=== PATIENT | female | born 1990 | race African-American/Black ===

== ENCOUNTER 2025-05-17 12:22 | Emergency (ER) | payer OTHER ==
[~2025-05-17] VITALS: Ht 149.9 cm; Wt 71.0 kg
[2025-05-17 12:39] VITALS: BP 120/74; TEMP 36.7; O2SAT 99
[2025-05-17 12:40] VITALS: PULSE 90; RESP 18; O2SAT 99
== END 2025-05-17 14:04 | disposition left against medical advice (07) ==
LOC: ER 12:22
DX: R07.2 Precordial pain (principal); R42 Dizziness and giddiness
CPT/HCPCS: 99282